=== PATIENT | female | born 1955 | race Caucasian/White ===

== ENCOUNTER → 2016-08-25 | Outpatient (CLI) | payer OTHER ==
[~2016-08-25] MED LIST: B-COCAP9 PO; LIPI80TA PO; LISI-587 PO; LORA10TA PO; MEDI220T PO; MULT1TAB96 PO; NAPR220T9 PO; OMEP20TA39 PO; OXYB5TAB10 PO; RANI150C PO
[2016-08-25 13:12] LABS: HDL CHOLESTEROL 41.6 MG/DL (40.0-60.0)
== END ==
LOC: PLAB 08:34
PROVIDERS: ATTEND Family Medicine
DX: E78.5 Hyperlipidemia, unspecified (principal)
CPT/HCPCS: 36415; 80061